=== PATIENT | male | born 2000 | race Caucasian/White ===

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

== ENCOUNTER 2024-01-19 13:19 | Emergency (ER) | payer BC, OTHER ==
[2024-01-19 13:33] VITALS: RESP 18; TEMP 98.3
[2024-01-19 14:10] LABS: Basophils # (A) 0.1 k/uL (0-0.2); Basophils % (A) 1 %; Eosinophils # (A) 0.1 k/uL (0-0.7); Eosinophils % (A) 2 %; HCT 50.3 % (39.0-53.0); HGB 17.3 gm/dL (13.0-17.5); Lymphocytes % (A) 28 %; MCH 30.4 pg (25.0-35.0); MCHC 34.4 g/dL (31.0-37.0); MCV 88.3 fL (80.0-100.0); Mean Platelet Volume 6.7; Monocytes # (A) 0.5 k/uL (0-1.0); Monocytes % (A) 7 %; Neutrophils # (A) 4.3 k/uL (1.3-7.7); Neutrophils % (A) 61 %; Platelet Count 232 k/uL (150-450); RBC 5.69 m/uL (4.30-5.90); RDW 12.4 % (11.5-15.5); WBC 7.1 k/uL (3.8-10.6)
[2024-01-19 14:33] LABS: ALT 42 U/L (4-49); AST 30 U/L (17-59); African American GFR (CKD) >90 (>60 ml/min/1.73 sqM); Albumin 4.9 g/dL (3.5-5.0); Alkaline Phosphatase 100 U/L (38-126); Anion Gap 10 mmol/L; Blood Urea Nitrogen 16 mg/dL (9-20); Calcium 9.5 mg/dL (8.4-10.2); Carbon Dioxide 23 mmol/L (22-30); Chloride 105 mmol/L (98-107); Glucose 97 mg/dL (74-99); Non-African American GFR(CKD) >90 (>60 ml/min/1.73 sqM); Potassium 4.7 mmol/L (3.5-5.1); Sodium 138 mmol/L (137-145); Total Bilirubin 2.3 mg/dL (0.2-1.3); Total Protein 7.1 g/dL (6.3-8.2)
[2024-01-19 14:37] LABS: Partial Thromboplastin Time 26.1 sec (22.0-30.0); Prothrombin Time 10.8 sec (10.0-12.5)
--- NOTE | 2024-01-19 14:52 | ED ---
General Adult HPI - General Chief complaint: GI Bleed Stated complaint: Blood in stool Time Seen by Provider: 01/19/24 13:48 Source: patient, RN notes reviewed, old records reviewed Mode of arrival: ambulatory Limitations: no limitations - History of Present Illness Initial comments: 23-year-old male with an episode of diarrhea and bright red rectal bleeding. Patient is otherwise healthy with no chronic medical conditions. He has no abdominal pain. No history of hemorrhoids. No family history of colon cancer. He denies vomiting. Denies fever. - Related Data Home Medications Medication Instructions Recorded Confirmed No Known Home Medications 03/24/20 01/19/24 Allergies Allergy/AdvReac Type Severity Reaction Status Date / Time amoxicillin Allergy Rash/Hives Verified 01/19/24 14:34 Review of Systems ROS Statement: Those systems with pertinent positive or pertinent negative responses have been documented in the HPI. ROS Other: All systems not noted in ROS Statement are negative. Past Medical History Past Medical History: No Reported History History of Any Multi-Drug Resistant Organisms: None Reported Past Surgical History: Orthopedic Surgery Past Psychological History: Depression Smoking Status: Current every day smoker, Vaper Past Alcohol Use History: Occasional Past Drug Use History: Marijuana General Exam Limitations: no limitations General appearance: alert, in no apparent distress Head exam: Present: atraumatic, normocephalic Eye exam: Present: normal appearance, PERRL ENT exam: Present: normal exam Respiratory exam: Present: normal lung sounds bilaterally. Absent: respiratory distress, wheezes Cardiovascular Exam: Present: regular rate, normal rhythm GI/Abdominal exam: Present: soft. Absent: distended, tenderness, guarding Rectal exam: Present: normal inspection. Absent: black stool, bloody stool, hemorrhoids Neurological exam: Present: alert, oriented X3 Psychiatric exam: Present: normal affect, normal mood Skin exam: Present: warm, dry, intact Course Vital Signs 01/19/24 13:29 Temperature 98.3 F Pulse Rate 79 Respiratory 18 Rate Blood Pressure 119/72 O2 Sat by Pulse 97 Oximetry Medical Decision Making - Medical Decision Making Was pt. sent in by a medical professional or institution (, PA, LEGISLATIVE CORRESPONDENT, urgent care, hospital, or long term...) When possible be specific @ -No Did you speak to anyone other than the patient for history (EMS, parent, family, police, friend...)? What history was obtained from this source @ -No Did you review nursing and triage notes (agree or disagree)? Why? @ -I reviewed and agree with nursing and triage notes Were old charts reviewed (outside hosp., previous admission, EMS record, old EKG, old radiological studies, urgent care reports/EKG's, long term records)? Report findings @ -No old charts were reviewed Differential GI Bleed: Esophageal varices, aortoenteric fistula, [place]-P[place], gastritis, peptic ulcer disease, diverticulosis, inflammatory bowel disease, hemorrhoids, fissure, colitis, malignancy, Meckel's diverticulum, this is not meant to be an all- inclusive list. EKG interpreted by me (3pts min.). @ -As above X-rays interpreted by me (1pt min.). @ -None done CT interpreted by me (1pt min.). @ -None done U/S interpreted by me (1pt. min.). @ -None done What testing was considered but not performed or refused? (CT, X-rays, U/S, labs)? Why? @ -None What meds were considered but not given or refused? Why? @ -None Did you discuss the management of the patient with other professionals (professionals i.e. , PA, LEGISLATIVE CORRESPONDENT, lab, RT, psych nurse, manager social work, studio sales associate, teacher, registration officer, window caser)? Give summary @ -No Was smoking cessation discussed for >3mins.? @ -No Was critical care preformed (if so, how long)? @ -No Were there social determinants of health that impacted care today? How? (Homelessness, low income, unemployed, alcoholism, drug addiction, transportation, low edu. Level, literacy, decrease access to med. care, long-term, rehab)? @ -No Was there de-escalation of care discussed even if they declined (Discuss DNR or withdrawal of care, Hospice)? DNR status @ -No What co-morbidities impacted this encounter? (DM, HTN, Smoking, COPD, CAD, Cancer, CVA, ARF, Chemo, Hep., AIDS, mental health diagnosis, sleep apnea, morbid obesity)? @ -None Was patient admitted / discharged? Hospital course, mention meds given and route, prescriptions, significant lab abnormalities, going to OR and other pertinent info. @23-year-old male with an episode of bright red rectal bleeding with associated diarrhea. Patient well-appearing with stable vitals. He has no abdominal pain or tenderness. Rectal exam does not reveal any active bleeding or hemorrhoids. Patient has a hemoglobin of 17 and otherwise normal labs. We discussed an obser vation period with strict return parameters and follow-up with his primary care provider. He will likely require a colonoscopy as an outpatient. Undiagnosed new problem with uncertain prognosis? @ -No Drug Therapy requiring intensive monitoring for toxicity (Heparin, Nitro, Insulin, Cardizem)? @ -No Were any procedures done? @ -No Diagnosis/symptom? @ -Rectal bleeding Acute, or Chronic, or Acute on Chronic? @ -Acute Uncomplicated (without systemic symptoms) or Complicated (systemic symptoms)? @ -Default Side effects of treatment? @ -No Exacerbation, Progression, or Severe Exacerbation? @ -No Poses a threat to life or bodily function? How? (Chest pain, [place], [place], pneumonia, PE, COPD, DKA, ARF, appy, cholecystitis, CVA, Diverticulitis, Homicidal, Suicidal, threat to staff... and all critical care pts) @ -Low risk at this time - Lab Data Result diagrams: 01/19/24 13:50 01/19/24 13:50 Lab Results 01/19/24 01/19/24 01/19/24 Range/Units 13:50 13:50 13:50 WBC 7.1 (3.8-10.6) k/uL RBC 5.69 (4.30-5.90) m/uL Hgb 17.3 (13.0-17.5) gm/dL Hct 50.3 (39.0-53.0) % MCV 88.3 (80.0-100.0) fL MCH 30.4 (25.0-35.0) pg MCHC 34.4 (31.0-37.0) g/dL RDW 12.4 (11.5-15.5) % Plt Count 232 (150-450) k/uL MPV 6.7 Neutrophils % 61 % Lymphocytes % 28 % Monocytes % 7 % Eosinophils % 2 % Basophils % 1 % Neutrophils # 4.3 (1.3-7.7) k/uL Lymphocytes # 2.0 (1.0-4.8) k/uL Monocytes # 0.5 (0-1.0) k/uL Eosinophils # 0.1 (0-0.7) k/uL Basophils # 0.1 (0-0.2) k/uL PT 10.8 (10.0-12.5) sec INR 1.0 (<1.2) APTT 26.1 (22.0-30.0) sec Sodium 138 (137-145) mmol/L Potassium 4.7 (3.5-5.1) mmol/L Chloride 105 (98-107) mmol/L Carbon Dioxide 23 (22-30) mmol/L Anion Gap 10 mmol/L BUN 16 (9-20) mg/dL Creatinine 0.86 (0.66-1.25) mg/dL Est GFR (CKD-EPI)AfAm >90 (>60 ml/min/1.73 sqM) Est GFR (CKD-EPI)NonAf >90 (>60 ml/min/1.73 sqM) Glucose 97 (74-99) mg/dL Calcium 9.5 (8.4-10.2) mg/dL Total Bilirubin 2.3 H (0.2-1.3) mg/dL AST 30 (17-59) U/L ALT 42 (4-49) U/L Alkaline Phosphatase 100 (38-126) U/L Total Protein 7.1 (6.3-8.2) g/dL Albumin 4.9 (3.5-5.0) g/dL Disposition Clinical Impression: Rectal bleeding Disposition: HOME SELF-CARE Condition: Fair Instructions (If sedation given, give patient instructions): Gastrointestinal Bleeding (ED) Is patient prescribed a controlled substance at d/c from ED?: No Referrals: None,Stated [Primary Care Provider] - 1-2 days Sade Goins MD [STAFF PHYSICIAN] - 1-2 days Time of Disposition: 14:51
[2024-01-19 15:10] VITALS: BP 107/71; PULSE 60
== END 2024-01-19 15:10 | disposition home or self-care (01) ==
LOC: EC 13:19
DX: K62.5 Hemorrhage of anus and rectum (principal); F17.290 Nicotine dependence, other tobacco product, uncomplicated; Z88.0 Allergy status to penicillin
CPT/HCPCS: 36415; 80053; 85025; 85610; 85730; 99284

== ENCOUNTER 2024-06-25 17:56 | Emergency (ER) | payer BC ==
[2024-06-25 18:06] VITALS: TEMP 97.9
--- NOTE | 2024-06-25 19:21 | XR ---
EXAMINATION TYPE: XR chest 2V DATE OF EXAM: 06/25/2024 7:11 PM COMPARISON: Chest radiograph 03/24/2020. CLINICAL INDICATION: Male, 24 years old with history of Chest Pain; [facility] TECHNIQUE: XR chest 2V Frontal and lateral views of the chest. FINDINGS: Lungs/Pleura: There is no evidence of pleural effusion, focal consolidation, or pneumothorax. Pulmonary vascularity: Unremarkable. Heart/mediastinum: Cardiomediastinal silhouette is unremarkable. Musculoskeletal: No acute osseous pathology. Other findings: None IMPRESSION: No acute cardiopulmonary disease/process. [facility], , 06/25/2024 7:19 PM
--- NOTE | 2024-06-25 19:33 | ED ---
General Adult HPI - General Source: patient, family, RN notes reviewed Mode of arrival: ambulatory Limitations: no limitations <Chris Nash - Last Filed: 06/25/24 19:30> - General Source: patient, RN notes reviewed <Kimberly Green - Last Filed: 06/25/24 21:37> - General Chief complaint: Chest Pain Stated complaint: chest pain Time Seen by Provider: 06/25/24 18:11 - History of Present Illness Initial comments: Quick note: This is a 24-year-old male presenting for mid chest pain since 1200. Patient states he was at work and he suddenly began having nonradiating mid chest pain feeling like someone "grabbed my heart", lasting approximately 2 hours before spontaneous resolution after lying down. Endorses associated dyspnea which also resolved spontaneously. Patient denies cardiac or anxiety history. Endorses father having valvular issues and grandfather having history of AMI. (Chris Nash) 24-year-old male presenting for episode of chest pain earlier today. States around noon today he was at work digging with a shovel when he began to suddenly experience nonradiating mid chest pain described as someone "grabbing his heart". States this lasted for approximately 1 hour after spontaneous resolution while laying down. Endorses associated shortness of breath with the chest pain. States he is currently asymptomatic. He has never had this pain before. Denies cardiac or pulmonary history. He is a current smoker. (Kimberly Green) - Related Data Home Medications Medication Instructions Recorded Confirmed No Known Home Medications 03/24/20 01/19/24 Allergies Allergy/AdvReac Type Severity Reaction Status Date / Time amoxicillin Allergy Rash/Hives Verified 06/25/24 18:06 Review of Systems ROS Other: All systems not noted in ROS Statement are negative. <Chris Nash - Last Filed: 06/25/24 19:30> ROS Other: All systems not noted in ROS Statement are negative. <Kimberly Green - Last Filed: 06/25/24 21:37> ROS Statement: Those systems with pertinent positive or pertinent negative responses have been documented in the HPI. Past Medical History Past Medical History: No Reported History History of Any Multi-Drug Resistant Organisms: None Reported Past Surgical History: Orthopedic Surgery Past Psychological History: Depression Smoking Status: Current every day smoker, Vaper Past Alcohol Use History: Occasional Past Drug Use History: Marijuana <Chris Nash - Last Filed: 06/25/24 19:30> General Exam Limitations: no limitations <Chris Nash - Last Filed: 06/25/24 19:30> General appearance: alert, in no apparent distress Head exam: Present: atraumatic, normocephalic, normal inspection Eye exam: Present: normal appearance, PERRL, EOMI. Absent: scleral icterus, conjunctival injection, periorbital swelling ENT exam: Present: normal exam, mucous membranes moist Neck exam: Present: normal inspection. Absent: tenderness, meningismus, lymphadenopathy Respiratory exam: Present: normal lung sounds bilaterally. Absent: respiratory distress, wheezes, rales, rhonchi, stridor, chest wall tenderness Cardiovascular Exam: Present: regular rate, normal rhythm, normal heart sounds. Absent: systolic murmur, diastolic murmur, rubs, gallop, clicks GI/Abdominal exam: Present: soft, normal bowel sounds. Absent: distended, tenderness, guarding, rebound, rigid Neurological exam: Present: alert, oriented X3 Psychiatric exam: Present: normal affect, normal mood Skin exam: Present: warm, dry, intact, normal color. Absent: rash <Kimberly Green - Last Filed: 06/25/24 21:37> - General Exam Comments Initial Comments: Visual Physical Exam Vital signs reviewed General: Well-appearing, nontoxic, no acute distress. Head: Normocephalic, atraumatic Eyes: PERRLA, EOMI ENT: Airway patent Chest: Nonlabored breathing Skin: No visual rash, normal skin tone Neuro: Alert and oriented 3 Musculoskeletal: No gross abnormalities (Chris Nash) Course Vital Signs 06/25/24 18:04 Temperature 97.9 F Pulse Rate 65 Respiratory 18 Rate Blood Pressure 119/78 O2 Sat by Pulse 99 Oximetry EKG Findings - EKG Results: EKG: interpreted by ERMD (EKG reveals sinus rhythm with sinus arrhythmia. Ventricular rate 61 bpm, OK interval 132, QRS duration 87, QT/QTc 344/348) <Kimberly Green - Last Filed: 06/25/24 21:37> Medical Decision Making <Chris Nash - Last Filed: 06/25/24 19:30> - Lab Data Result diagrams: 06/25/24 20:25 06/25/24 20:25 <Kimberly Green - Last Filed: 06/25/24 21:37> - Medical Decision Making I completed the quick note portion of this chart signed EVE Douglas (Chris Nash) Was pt. sent in by a medical professional or institution ([facility], [employer], urgent care, hospital, or alf...) When possible be specific @ -No Did you speak to anyone other than the patient for history (EMS, parent, family, police, friend...)? What history was obtained from this source @ -No Did you review nursing and triage notes (agree or disagree)? Why? @ -I reviewed and agree with nursing and triage notes Were old charts reviewed (outside hosp., previous admission, EMS record, old EKG, old radiological studies, urgent care reports/EKG's, alf records)? Report findings @ -No old charts were reviewed Differential Diagnosis (chest pain, altered mental status, abdominal pain women, abdominal pain men, vaginal bleeding, weakness, fever, dyspnea, syncope, headache, dizziness, GI bleed, back pain, seizure, CVA, palpatations, mental health, musculoskeletal)? @ -Differential Chest Pain: Stable Angina, Unstable Angina, STEMI, NSTEMI Aortic Dissection, Pneumothorax, Musculoskeletal, Esophageal Spasm GERD, Cholecystitis, Pancreatitis, Zoster, this is not meant to be an all-inclusive list. EKG interpreted by me (3pts min.). @ -As above X-rays interpreted by me (1pt min.). @ -Chest x-ray revealed no acute process CT interpreted by me (1pt min.). @ -None done U/S interpreted by me (1pt. min.). @ -None done What testing was considered but not performed or refused? (CT, X-rays, U/S, labs)? Why? @ -None What meds were considered but not given or refused? Why? @ -None Did you discuss the management of the patient with other professionals (professionals i.e. [facility] Holley, [employer], lab, RT, psych nurse, social media strategist, rehabilitator, teacher, natural resource officer, telehealth case manager)? Give summary @ -No Was smoking cessation discussed for >3mins.? @ -No Was critical care preformed (if so, how long)? @ -No Were there social determinants of health that impacted care today? How? (Homelessness, low income, unemployed, alcoholism, drug addiction, transportation, low edu. Level, literacy, decrease access to med. care, half-way, rehab)? @ -No Was there de-escalation of care discussed even if they declined (Discuss DNR or withdrawal of care, Hospice)? DNR status @ -No What co-morbidities impacted this encounter? (DM, HTN, Smoking, COPD, CAD, Cancer, CVA, ARF, Chemo, Hep., AIDS, mental health diagnosis, sleep apnea, morbid obesity)? @ -None Was patient admitted / discharged? Hospital course, mention meds given and route, prescriptions, significant lab abnormalities, going to OR and other pertinent info. @ -Discharge. 24-year-old male presenting for episode of chest pain earlier today. Patient is currently asymptomatic. No cardiac or pulmonary history. Patient is well-appearing, no acute distress. Lab work remarkable for mild leukocytosis of 12, elevated bilirubin 2.6 however comparable to previous value of 2.3 January of last year. Troponin undetectable. EKG reveals sinus rhythm with sinus arrhythmia, no acute ST changes. Chest x-ray negative for acute process. Discussed results with patient. Heart score is 1. I do not identify emergent etiology at this point. Patient can be safely discharged with strict return precautions and appropriate follow-up care. Case was discussed with my ED attending Dr. Mejía Undiagnosed new problem with uncertain prognosis? @ -No Drug Therapy requiring intensive monitoring for toxicity (Heparin, Nitro, Insulin, Cardizem)? @ -No Were any procedures done? @ -No Diagnosis/symptom? @ -Chest pain Acute, or Chronic, or Acute on Chronic? @ -Acute Uncomplicated (without systemic symptoms) or Complicated (systemic symptoms)? @ -Uncomplicated Side effects of treatment? @ -No Exacerbation, Progression, or Severe Exacerbation? @ -No Poses a threat to life or bodily function? How? (Chest pain, USA, OR, pneumonia, PE, COPD, DKA, ARF, appy, cholecystitis, CVA, Diverticulitis, Homicidal, Suicidal, threat to staff... and all critical care pts) @ -No (Kimberly Green) - Lab Data Lab Results 06/25/24 06/25/24 06/25/24 Range/Units 20:25 20:25 20:25 WBC 12.45 H (4.50-10.00) 10*3/uL RBC 5.40 (4.40-5.60) 10*6/uL Hgb 16.3 (13.0-17.0) g/dL Hct 45.8 (39.6-50.0) % MCV 84.8 (80.0-97.0) fL MCH 30.2 (27.0-32.0) pg MCHC 35.6 (32.0-37.0) g/dL Plt Count 245 (140-440) 10*3/uL MPV 9.0 L (9.5-12.2) fL Immature Gran % (Auto) 0.4 % Neutrophils % 67.2 % Lymphocytes % 23.2 % Monocytes % 8.4 % Eosinophils % 0.3 % Basophils % 0.5 % Immature Gran # 0.05 H (0.00-0.04) 10*3/uL Neutrophils # 8.36 H (1.80-7.70) 10*3/uL Lymphocytes # 2.89 (0.90-5.00) 10*3/uL Monocytes # 1.05 H (0.20-1.00) 10*3/uL Eosinophils # 0.04 (0.04-0.35) 10*3/uL Basophils # 0.06 (0.00-0.10) 10*3/uL PT 11.2 (10.0-12.5) sec INR 1.0 (<1.2) APTT 23.9 (22.0-30.0) sec Sodium 137 (137-145) mmol/L Potassium 4.1 (3.5-5.1) mmol/L Chloride 99 (98-107) mmol/L Carbon Dioxide 25 (22-30) mmol/L Anion Gap 13 mmol/L BUN 9 (9-20) mg/dL Creatinine 0.85 (0.66-1.25) mg/dL Est GFR (CKD-EPI)AfAm >90 (>60 ml/min/1.73 sqM) Est GFR (CKD-EPI)NonAf >90 (>60 ml/min/1.73 sqM) Glucose 86 (74-99) mg/dL Calcium 10.3 H (8.4-10.2) mg/dL Magnesium 1.9 (1.6-2.3) mg/dL Total Bilirubin 2.6 H (0.2-1.3) mg/dL AST 31 (17-59) U/L ALT 33 (4-49) U/L Alkaline Phosphatase 83 (38-126) U/L Troponin I (0.000-0.034) ng/mL Total Protein 7.4 (6.3-8.2) g/dL Albumin 5.0 (3.5-5.0) g/dL 06/25/24 Range/Units 20:25 WBC (4.50-10.00) 10*3/uL RBC (4.40-5.60) 10*6/uL Hgb (13.0-17.0) g/dL Hct (39.6-50.0) % MCV (80.0-97.0) fL MCH (27.0-32.0) pg MCHC (32.0-37.0) g/dL Plt Count (140-440) 10*3/uL MPV (9.5-12.2) fL Immature Gran % (Auto) % Neutrophils % % Lymphocytes % % Monocytes % % Eosinophils % % Basophils % % Immature Gran # (0.00-0.04) 10*3/uL Neutrophils # (1.80-7.70) 10*3/uL Lymphocytes # (0.90-5.00) 10*3/uL Monocytes # (0.20-1.00) 10*3/uL Eosinophils # (0.04-0.35) 10*3/uL Basophils # (0.00-0.10) 10*3/uL PT (10.0-12.5) sec INR (<1.2) APTT (22.0-30.0) sec Sodium (137-145) mmol/L Potassium (3.5-5.1) mmol/L Chloride (98-107) mmol/L Carbon Dioxide (22-30) mmol/L Anion Gap mmol/L BUN (9-20) mg/dL Creatinine (0.66-1.25) mg/dL Est GFR (CKD-EPI)AfAm (>60 ml/min/1.73 sqM) Est GFR (CKD-EPI)NonAf (>60 ml/min/1.73 sqM) Glucose (74-99) mg/dL Calcium (8.4-10.2) mg/dL Magnesium (1.6-2.3) mg/dL Total Bilirubin (0.2-1.3) mg/dL AST (17-59) U/L ALT (4-49) U/L Alkaline Phosphatase (38-126) U/L Troponin I <0.012 (0.000-0.034) ng/mL Total Protein (6.3-8.2) g/dL Albumin (3.5-5.0) g/dL Disposition <Chris Nash - Last Filed: 06/25/24 19:30> Is patient prescribed a controlled substance at d/c from ED?: No Time of Disposition: 21:37 <Kimberly Green - Last Filed: 06/25/24 21:37> Clinical Impression: Chest pain Disposition: HOME SELF-CARE Condition: Stable Instructions (If sedation given, give patient instructions): Chest Pain (ED) Additional Instructions: Please return to the Emergency Department if symptoms worsen or any other concerns. Referrals: Kalyn Jacobo DO [Primary Care Provider] - 1-2 days
[2024-06-25 20:31] LABS: Basophils # (A) 0.06 10*3/uL (0.00-0.10); Basophils % (A) 0.5 %; Eosinophils # (A) 0.04 10*3/uL (0.04-0.35); Eosinophils % (A) 0.3 %; HCT 45.8 % (39.6-50.0); HGB 16.3 g/dL (13.0-17.0); Lymphocytes # (A) 2.89 10*3/uL (0.90-5.00); Lymphocytes % (A) 23.2 %; MCH 30.2 pg (27.0-32.0); MCHC 35.6 g/dL (32.0-37.0); MCV 84.8 fL (80.0-97.0); Monocytes # (A) 1.05 10*3/uL (0.20-1.00); Monocytes % (A) 8.4 %; Neutrophils # (A) 8.36 10*3/uL (1.80-7.70); Neutrophils % (A) 67.2 %; Platelet Count 245 10*3/uL (140-440); RDW 12.1 % (11.5-14.5); WBC 12.45 10*3/uL (4.50-10.00)
[2024-06-25 20:42] LABS: Partial Thromboplastin Time 23.9 sec (22.0-30.0); Prothrombin Time 11.2 sec (10.0-12.5)
[2024-06-25 20:44] LABS: ALT 33 U/L (4-49); AST 31 U/L (17-59); African American GFR (CKD) >90 (>60 ml/min/1.73 sqM); Alkaline Phosphatase 83 U/L (38-126); Anion Gap 13 mmol/L; Blood Urea Nitrogen 9 mg/dL (9-20); Calcium 10.3 mg/dL (8.4-10.2); Carbon Dioxide 25 mmol/L (22-30); Chloride 99 mmol/L (98-107); Glucose 86 mg/dL (74-99); Magnesium 1.9 mg/dL (1.6-2.3); Non-African American GFR(CKD) >90 (>60 ml/min/1.73 sqM); Potassium 4.1 mmol/L (3.5-5.1); Sodium 137 mmol/L (137-145); Total Bilirubin 2.6 mg/dL (0.2-1.3); Total Protein 7.4 g/dL (6.3-8.2)
[2024-06-25 21:45] VITALS: BP 121/71; PULSE 64; RESP 16
== END 2024-06-25 21:45 | disposition home or self-care (01) ==
LOC: EC 17:56
DX: R07.9 Chest pain, unspecified (principal); F17.290 Nicotine dependence, other tobacco product, uncomplicated; Z88.0 Allergy status to penicillin
CPT/HCPCS: 36415; 71046; 80053; 83735; 84484; 85025; 85610; 85730; 93005; 99285